=== PATIENT | female | born 1995 | race Caucasian/White ===

== ENCOUNTER 2018-02-24 23:36 | Emergency (ER) | payer OTHER ==
[~2018-02-24] VITALS: Ht 152.4 cm; Wt 47.6 kg
[~2018-02-24 23:36] MED LIST: ALBUTEROL0.09 MG/A2 IH; AUGMENTIN 500 M1 TAB PO; IBU-6600 MG PO; MEDROL DOSEPAK4 MG PO; MOTRIN400 MG PO; Motrin,Rufen800 MG PO; NKHM; PREDNICOT20 MG PO; ZANTAC150 MG PO; ZITHROMAX Z PA250 MG PO
[2018-02-25] MEDS ORDERED: ANAPROX DS550 MG PO (01:00)
== END 2018-02-25 01:25 | disposition home or self-care (01) ==
LOC: ED 23:36
DX: S29.011A Strain of muscle and tendon of front wall of thorax, initial encounter (principal); X50.3XXA Overexertion from repetitive movements, initial encounter; Y93.41 Activity, dancing; Y92.89 Other specified places as the place of occurrence of the external cause; Y99.8 Other external cause status